=== PATIENT | female | born 1980 | race Caucasian/White ===

== ENCOUNTER 2017-12-26 09:26 | Outpatient (CLI) | END 2017-12-26 09:27 | disposition home or self-care (01) | LOC: LAB 09:26 | PROVIDERS: ATTEND Nurse Practitioner Family | DX: E03.9 Hypothyroidism, unspecified (principal) | CPT/HCPCS: 36415; 80053; 84443; 85025 ==

== ENCOUNTER 2018-08-01 17:06 | Outpatient (CLI) ==
--- NOTE | 2018-08-02 07:13 | DI ---
EXAM: Two views of the left calcaneus. History: Left heel pain. Findings: No acute fracture or dislocation. 5 mm plantar spur. No radiopaque foreign bodies. Join t spaces are preserved. Impression: 1. No acute osseous abnormality. 2. 5 mm plantar spur
--- NOTE | 2018-08-02 07:15 | DI ---
EXAM: Two views of the right calcaneus. History: Right heel pain. Findings: No acute fracture or dislocation. Joint spaces are preserved. 5 mm plantar spur. No rad iopaque foreign bodies. Impression: 1. No acute osseous abnormality. 2. 5 mm plantar spur
== END 2018-08-01 17:07 | disposition home or self-care (01) ==
LOC: RAD 17:06
PROVIDERS: ATTEND Family Medicine
DX: M79.671 Pain in right foot (principal); M79.672 Pain in left foot

== ENCOUNTER 2019-03-12 08:54 | Day surgery (SDC) ==
[2019-03-12 09:57] LABS: URINE PREGNANCY TEST NEGATIVE (NEGATIVE)
[2019-03-12] MEDS ORDERED: LIDOCAINE 1% 20 ML MDV ID STA (10:00)
[2019-03-12] MEDS ORDERED: LIDOCAINE 1% 20 ML MDV ID ONE (10:08)
[2019-03-12] MEDS ORDERED: DIPRIVAN 20 ML VIAL IVP ONE (11:10)
[2019-03-12 12:18] VITALS: BP 103/72; TEMP 98
--- NOTE | 2019-03-13 11:33 | OP ---
INDICATIONS FOR PROCEDURE: 38-year-old female presents complaining of diarrhea. This has been present for the last two to three months. She has a history of ulcerative proctitis diagnosed in 2001. This was diagnosed by Dr. Steward. In 2017 Dr. Awad also noted ulcerative proctitis but told her she may have Crohn's disease. She has been on Apriso. She presents for colonoscopy investigation. MEDICATIONS: SEE ANESTHESIA NOTES. PROCEDURE: COLONOSCOPY, BIOPSY. REPORT: The risks, benefits, alternatives and limitations were discussed in detail with the patient. Informed consent was obtained. After adequate sedation was achieved, a digital rectal exam revealed good tone, no masses. The colonoscope was introduced into the rectum and advanced under direct visual guidance to the cecum. The cecum was identified by the appendiceal orifice and IC valve. The IC valve was in a retroflex position but I was able to get the scope into terminal ileum and look at the distal 4 to 5 cm. This appeared normal. I then slowly withdrew the scope in a circumferential manner examining the mucosa quite carefully. I looked on the proximal and distal side of folds and flexures as best as possible. I was able to retroflex the scope in the right colon as well as left colon. Her prep was fair in places. There is scattered solid stool particles in the right colon and in the descending area. Distal to the descending colon was good. I noted small mouth diverticulitis scattered throughout the entire colon including the hepatic flexure, transverse, descending, and sigmoid colon. There was a few small mouth diverticulitis scattered throughout each area. I noted active inflammation in circumferential manner starting at 15 cm and progressing down to the anus. This was consistent with ulcerative colitis. It was uniform manifested by erythema, aphthous ulceration and adherent mucus. I obtained biopsies for histological background from the cecum, mid transverse colon, mid descending colon, 30 cm from the sigmoid, 20 cm and again at 15 cm. No other abnormalities were noted. The withdrawal time is 9 minutes and two seconds. The patient tolerated the procedure well with stable vital signs and pulse oximetry throughout. IMPRESSION: 1. ACTIVE COLITIS CONSISTENT WITH ULCERATIVE COLITIS INVOLVING DISTAL 15 CM. 2. SCATTERED REYNOLDS DIVERTICULOSIS. 3. GOOD TO FAIR PREP. RECOMMENDATIONS: 1. Await pathology results. 2. I will talk to her about a trial of Rowasa enemas vs Canasa suppositories on top of her Apriso. 3. Will schedule an office visit with me in two weeks. ADDENDUM: I spoke to Nidia after her procedure. She informed me she did do Rowasa enemas years ago and tolerated them well. We will prescribe Rowasa enemas one q.h.s. I also recommend a Medrol Dosepak. She will followup in two weeks. We did discuss treatment options such as immunosuppressants, biologic, surgery, steroids and 5-ASA categories. cc: Dr. Norman BORJA
== END 2019-03-12 12:50 | disposition home or self-care (01) ==
LOC: SURG 08:54
PROVIDERS: ATTEND Internal Medicine Gastroenterology
DX: K50.119 Crohn's disease of large intestine with unspecified complications (principal); K62.5 Hemorrhage of anus and rectum; R19.7 Diarrhea, unspecified; K57.90 Diverticulosis of intestine, part unspecified, without perforation or abscess without bleeding; K51.90 Ulcerative colitis, unspecified, without complications
CPT/HCPCS: 81025